=== PATIENT | female | born 1960 | race Caucasian/White ===

== ENCOUNTER 2019-08-07 11:45 | Emergency (ER) | payer MEDICARE ==
[~2019-08-07] VITALS: Ht 152.4 cm; Wt 68.2 kg
[2019-08-07 11:51] VITALS: Ht 152.4 cm; Wt 68.2 kg
[2019-08-07 13:05] LABS: APPEARANCE CLEAR (CLEAR); BILIRUBIN NEGATIVE (NEGATIVE); COLOR YELLOW (YELLOW); GLUCOSE NEGATIVE (NEGATIVE); KETONE NEGATIVE (NEGATIVE); NITRITE NEGATIVE (NEGATIVE); PROTEIN TRACE mg/dL (NEGATIVE); SPECIFIC GRAVITY 1.015 (1.005-1.020); UROBILINOGEN NORMAL (NORMAL)
[2019-08-07 13:06] LABS: BACTERIA MODERATE /hpf (NEGATIVE); EPITHELIAL CELLS 0-5 /hpf (0-5); MUCUS <1+ /lpf (NONE SEEN); WHITE CELLS - URINE NSEEN /hpf (NEGATIVE)
[2019-08-07] MEDS ORDERED: LEVOTHYROXINE PO (13:08)
[2019-08-07] MEDS ORDERED: BETAPACE 80 MG80 MG PO (13:08)
[2019-08-07] MEDS ORDERED: [UNRECOGNIZED DRUG - REMARK] (13:09)
[2019-08-07] MEDS ORDERED: PRAVACHOL20 MG PO (13:09)
[2019-08-07] MEDS ORDERED: ULTRAM50 MG PO (14:22)
[2019-08-07] MEDS ORDERED: CIPRO250 MG PO (14:22)
[2019-08-07 14:53] VITALS: BP 110/50
== END 2019-08-07 14:53 | disposition home or self-care (01) ==
LOC: D.ER 11:45
PROVIDERS: Emergency Medicine
DX: M54.9 Dorsalgia, unspecified (principal); R82.71 Bacteriuria; J44.9 Chronic obstructive pulmonary disease, unspecified; Z72.0 Tobacco use; I10 Essential (primary) hypertension; Z95.0 Presence of cardiac pacemaker

== ENCOUNTER 2021-02-15 17:21 | Emergency (ER) | payer MEDICARE ==
[~2021-02-15] VITALS: Ht 152.4 cm; Wt 65.9 kg
[~2021-02-15 17:21] MED LIST: BETAPACE 80 MG80 MG PO; CIPRO250 MG PO; LEVOTHYROXINE PO; PRAVACHOL20 MG PO; ULTRAM50 MG PO; [UNRECOGNIZED DRUG - REMARK]
[2021-02-15 17:35] VITALS: Ht 152.4 cm; Wt 65.9 kg
[2021-02-15 18:07] LABS: BASOPHILS 0.4 % (0-2); EOSINOPHILS 4.6 % (0-7); HEMATOCRIT 34.9 % (36.0-48.0); HEMOGLOBIN 11.7 g/dL (12-16); LYMPHOCYTES 19.8 % (15-50); MCH 29.8 pg (26.0-34.0); MCHC 33.5 g/dL (31.0-37.0); MEAN PLATELET VOLUME 9.2 fL (7.4-10.4); MONOCYTES 8.1 % (2-11); NEUTROPHILS 67.1 % (40-80); RBC 3.93 10x6/uL (4.00-5.40); RDW 16.6 % (11.5-14.5); WBC 8.3 10x3/uL (4.8-10.8)
[2021-02-15 18:09] LABS: PLATELET COUNT 269 10x3/uL (130-400)
[2021-02-15 18:17] LABS: CALC OSMOLALITY 287 mosm/kg (275-300); CALCIUM 9.4 mg/dL (8.5-10.1); CARBON DIOXIDE 29.9 mmol/L (21.0-32.0); CHLORIDE - SERUM 103 mmol/L (98-107); CREATININE - SERUM 1.6 mg/dL (0.6-1.3); GLUCOSE 106 mg/dL (74-106); POTASSIUM - SERUM 3.8 mmol/L (3.5-5.1); SODIUM 141 mmol/L (136-145); UREA NITROGEN 31 mg/dL (7-18); eGFR NON AFRICAN AMERICAN 35 mL/min (90-120)
[2021-02-15 18:26] LABS: ALBUMIN 3.5 g/dL (3.4-5.0); ALKALINE PHOSPHATASE 102 U/L (30-120); ALT (SGPT) 16 U/L (10-68); AMYLASE - SERUM 42 U/L (25-115); BILIRUBIN - TOTAL 0.32 mg/dL (0.2-1.3); LIPASE 69 U/L (73-393); PROTEIN - SERUM 7.8 g/dL (6.4-8.2)
[2021-02-15 18:27] LABS: TROPONIN-I < 0.017 ng/mL (0.000-0.060)
[2021-02-15 22:24] VITALS: BP 124/59
== END 2021-02-15 22:24 | disposition home or self-care (01) ==
LOC: D.ER 17:21
PROVIDERS: Family Medicine
DX: R10.9 Unspecified abdominal pain (principal); K43.9 Ventral hernia without obstruction or gangrene; N28.9 Disorder of kidney and ureter, unspecified; I50.9 Heart failure, unspecified